=== PATIENT | female | born 1975 | race Caucasian/White ===

== ENCOUNTER 2017-11-04 06:45 | Day surgery (SDC) | payer OTHER ==
[~2017-11-04 06:45] MED LIST: Buffered Lidocaine 0.9% SYRIN* 5 ML/SYR SYRINGE INTRADERM ONE; Dexamethasone IV* 4 MG/ML 1 ML (4 MG) IV SLOW PU ONE; Famotidine IV* 10 MG/ML 2 ML (20 mg) IV ONE
[2017-11-04] MEDS ORDERED: ceFAZolin 2 GM PREMIX (*) 2 GM/50 ML BAG IVPB ONE (06:54)
[2017-11-04] MEDS ORDERED: Famotidine IV* 10 MG/ML 2 ML (20 mg) ONE (06:54)
[2017-11-04] MEDS ORDERED: Dexamethasone IV* 4 MG/ML 1 ML (4 MG) ONE (06:54)
[2017-11-04] MEDS ORDERED: Buffered Lidocaine 0.9% SYRIN* 5 ML/SYR SYRINGE ONE (06:54)
[2017-11-04] MEDS ORDERED: Bupivacaine 0.25% SDV* 30 ML ONE (07:15)
[2017-11-04] MEDS ORDERED: Lidocaine 1% MPF wEPI 200,000* 30 ML SDV ONE (07:15)
[2017-11-04] MEDS ORDERED: KETAMINE HCL* 50 MG/ML 10 ML VIAL ONE (07:31)
[2017-11-04] MEDS ORDERED: Midazolam* 1 MG/ML 2 ML VIAL (2 MG) ONE (07:31)
[2017-11-04] MEDS ORDERED: Rocuronium* 10 MG/ML VIAL ONE ×2 (07:32→07:36)
[2017-11-04] MEDS ORDERED: Lidocaine 1% INJ* 10 MG/ML 30 ML SDV ONE (07:35)
[2017-11-04] MEDS ORDERED: fentaNYL* 50 MCG/ML 2 ML VIAL (100 MCG VIAL) ONE ×2 (09:42→10:47)
[2017-11-04] MEDS ORDERED: Glycopyrrolate IV* 0.2 MG/ML 1 ML VIAL ONE (09:46)
[2017-11-04] MEDS ORDERED: Neostigmine Methylsulfate* 2 MG/2 ML SYRINGE ONE (09:46)
[2017-11-04] MEDS ORDERED: DiMENhydriNATE IV* 50 MG/ML VIAL IV PUSH PRN (10:18)
[2017-11-04] MEDS ORDERED: HYDROmorphone INJ* 1 MG/ML CARPUJECT SYRINGE IV PRN (10:18)
[2017-11-04] MEDS ORDERED: oxyCODONE/Acetamin 5/325 MG* TAB PO PRN (10:20)
[2017-11-04] MEDS: fentaNYL* 50 MCG/ML 2 ML VIAL (100 MCG VIAL) IV PRN ×2 (10:23→10:49)
[2017-11-04] MEDS ORDERED: Ketorolac INJ* 30 MG/ML 1 ML VIAL IV PUSH ONE (10:30)
[2017-11-04] MEDS ORDERED: HYDROmorphone INJ* 1 MG/ML CARPUJECT SYRINGE ONE (10:47)
[2017-11-04] MEDS ORDERED: Ibuprofen TAB* 600 MG ONE (15:55)
[2017-11-04 16:04] VITALS: BP 116/62
--- NOTE | 2017-11-05 02:06 | OP ---
DATE OF PROCEDURE: 11/04/17 - MERGED WITH [facility] DATE OF : 73 SURGEON: Jacquie Hahn MD DEAF INTERPRETER: Dr. Garcia. ANESTHESIA: General endotracheal. PRE-OP DIAGNOSES: 1. Abnormal uterine bleeding. 2. Subserosal and submucosal leiomyoma. 3. Failed conservative management. POST-OP DIAGNOSES: 1. Abnormal uterine bleeding. 2. Subserosal and submucosal leiomyoma. 3. Failed conservative management. OPERATIVE PROCEDURE: Laparoscopic supracervical hysterectomy, bilateral salpingectomy. ESTIMATED BLOOD LOSS: Less than 200 mL. FLUIDS: Crystalloid. DRAINS: Torres catheter 600 mL clear urine during procedure. FINDINGS: Normal ovaries and tubes. Uterus with a medium-sized left posterior fundal subserosal fibroid, otherwise appeared normal, normal-appearing appendix. COMPLICATIONS: None. COUNTS: All correct. DESCRIPTION OF PROCEDURE: After informed consent was signed, the patient was taken to the operating room where she was given general anesthesia that was found to be adequate. She was prepped and draped in the dorsal lithotomy position in the [facility]. Torres catheter was introduced into her bladder. A speculum was then placed into the vagina to expose the cervix and the anterior lip of the cervix was grasped with a single-tooth tenaculum. The uterine manipulator was inserted and the balloon inflated. The tenaculum and speculums were then removed from the vagina. Gloves were changed and attention was turned to the abdomen. The infraumbilical fold was grasped with Allis clamps and injected with 1% lidocaine with epinephrine. A 2 to 3 cm incision was then made vertically extending into the umbilicus. Incision was extended down to the layer of fascia with blunt dissection. The fascia was grasped with a Nava clamp and tented up and incised. The fascial incision was extended laterally with sharp dissection with the Núñez scissors. The peritoneum was entered bluntly. The single site port was then assembled and inserted through the incision. The camera was inserted into the abdominal cavity and it was insufflated. Inspection of the abdomen revealed previously noted findings. Attention was turned to the patient's left hand side where the tube was grasped and the mesosalpinx was clamped, cauterized, and cut along the length of the tube. The round ligament was then clamped, cauterized, and cut. The utero- ovarian ligament was clamped, cauterized, and cut with good hemostasis noted. Dissection was continued along the body of the uterus. The anterior flap of the broad ligament was dissected and clamped, cauterized, and cut to create a bladder flap. The uterine vessels were clamped and cauterized. Attention was then turned to the right side with the same steps were taken. Further dissection with cautery was continued along the length of the cervix until the uterine vessels were clamped and the uterus began to elaina. The electric loop was then inserted and placed around the uterus and brought taut against the base of the uterus and the cervix. It was inspected and no other organs were noted to be touching. Electrocautery was then used to cut as the loop was pulled through the cervix until the uterus was detached. The bag was then inserted. The uterus was placed into the bag and the bag was brought up to the umbilical incision. A guard was placed around the opening and the scalpel was then used to morcellate the uterus out of the incision. The bag was removed. The camera and ports were reassembled. The endocervix was cauterized with electrocautery. Several small vessels were cauterized around the posterior peritoneum and the edge of the cervix with excellent hemostasis noted. The abdomen was then irrigated. Once again, good hemostasis was noted along the cervix and both pedicles. The instruments were removed. The abdomen was desufflated. The port was then removed. The fascia was closed with 0 Vicryl in a running unlocked fashion. The skin was closed with 4-0 Monocryl in a running subcuticular fashion. Steri-Strip was placed. The patient was cleaned. The manipulator was removed from the cervix and vagina. She was placed back in the supine position, awakened from anesthesia, and brought to the recovery room in stable condition. [id number]/[facility] #: [id number] [facility]ITALSh[facility]
== END 2017-11-04 16:05 | disposition home or self-care (01) ==
LOC: OR 06:45
PROVIDERS: ATTEND Obstetrics & Gynecology
DX: D25.2 Subserosal leiomyoma of uterus (principal); D25.0 Submucous leiomyoma of uterus; Z85.828 Personal history of other malignant neoplasm of skin; N92.0 Excessive and frequent menstruation with regular cycle
CPT/HCPCS: 81025; 88307; A9270-GY; J0690; J1100; J1170; J2001; J2250; J3010

== ENCOUNTER 2018-02-27 08:44 | Emergency (ER) | payer OTHER ==
[2018-02-27 09:03] VITALS: BP 117/82
--- NOTE | 2018-02-27 09:36 | UC ---
Ear Complaint HPI - HPI Summary HPI Summary: c/o right ear pain that started several days ago with radiation to right jaw. She put some drops to remove wax but that gave her itching. Denies fever, cough , sore throat or nasal d/c - History of Current Complaint Chief Complaint: UCEar Stated Complaint: EAR PAIN Time Seen by Provider: 02/27/18 09:07 Hx Obtained From: Patient Hx Last Menstrual Period: s/p partial hysterectomy ?: No Onset/Duration: Sudden Onset, Lasting Days Severity Initially: Mild Severity Currently: Moderate Pain Intensity: 5 Alleviating Factors: Nothing - Allergies/Home Medications Allergies/Adverse Reactions: Allergies Allergy/AdvReac Type Severity Reaction Status Date / Time No Known Allergies Allergy Verified 02/27/18 08:54 PMH/Surg Hx/FS Hx/Imm Hx Previously Healthy: Yes - Surgical History Surgical History: Yes Surgery Procedure, Year, and Place: LAPAROSCOPIC CHOLECYSTECTOMY. WISDOM TEETH. OCT 2017 PARTIAL HYSTERECTOMY - Social History Alcohol Use: Weekly Alcohol Amount: 1-2 PER WEEK Substance Use Type: None Smoking Status (MU): Never Smoked Tobacco Review of Systems Constitutional: Negative ENT: Ear Ache All Other Systems Reviewed And Are Negative: Yes Physical Exam Triage Information Reviewed: Yes Appearance: Well-Appearing, No Pain Distress, Well-Nourished Vital Signs: Initial Vital Signs Temp 97.6 F 02/27/18 08:55 Pulse 63 02/27/18 08:55 Resp 16 02/27/18 08:55 BP 117/82 02/27/18 08:55 Pulse Ox 96 02/27/18 08:55 Vital Signs Reviewed: Yes Eyes: Positive: Conjunctiva Clear ENT: Positive: Hearing grossly normal, Pharynx normal, TM red - right TM erythema and bulging with edema of ear canal Dental Exam: Normal Respiratory: Positive: Chest non-tender, Lungs clear, Normal breath sounds, No respiratory distress Cardiovascular: Positive: RRR, No Murmur, Pulses Normal Ear Complaint Course/Dx - Course Course Of Treatment: AOM with Otitis externa, start antibiotics as prescribed, probiotics and oral hydration, f/u with PCP - Differential Dx/Diagnosis Provider Diagnoses: Acute Otitis Media. Otitis externa Discharge - Sign-Out/Discharge Documenting (check all that apply): Discharge - Discharge Plan Condition: Stable Disposition: HOME Prescriptions: Amoxicillin PO (*) [Amoxicillin 875 MG (*)] 875 mg PO BID 10 Days #20 tab Ciproflox/Dexameth OTIC.SUSP* [Ciprodex OTIC.SUSP*] 1 drop .SEE ORDER TID 5 Days #1 btl Patient Education Materials: Ear Infection (ED), Amoxicillin (By mouth), Ciprofloxacin/Dexamethasone (Into the ear) Referrals: Luis A Castelan MD [Primary Care Provider] - - Billing Disposition and Condition Condition: STABLE Disposition: HOME
== END 2018-02-27 09:35 | disposition home or self-care (01) ==
LOC: UCEAST 08:44
DX: H66.91 Otitis media, unspecified, right ear (principal); H60.91 Unspecified otitis externa, right ear
CPT/HCPCS: 99212; G0463

== ENCOUNTER 2020-02-09 04:22 | Emergency (ER) | payer OTHER ==
--- NOTE | 2020-02-09 04:42 | ED ---
Throat Pain/Nasal Congestion - HPI Summary HPI Summary: 45 year old female presents to the ED with a chief complaint of right ear pain starting 4 days ago. Pain is constant and feels like it is located deep in her ear, severity 9/10. Patient is unable to hear from the affected ear. Patient had a tele-appointment with an HENT specialist 2 days ago and was prescribed amoxicillin. Pain has only gotten worse since then, and acetaminophen does not alleviate the pain. Patient also reports back pain of 4/10 severity. Patient has a history of frequent ear aches. No past medical history apart from allergies and ear infections. - History of Current Complaint Chief Complaint: EDEarPain Time Seen by Provider: 02/09/20 04:33 Hx Obtained From: Patient Onset/Duration: Gradual Onset, Lasting Days Severity: Severe Associated Signs And Symptoms: Negative: Negative - Pos - right ear pain Cough: None Related History: Seasonal Allergies - Allergies/Home Medications Allergies/Adverse Reactions: Allergies Allergy/AdvReac Type Severity Reaction Status Date / Time No Known Allergies Allergy Verified 02/09/20 04:24 Home Medications: Home Medications oxyCODONE/Acetamin 5/325 MG* [Percocet 5/325 TAB*] 1 tab PO Q4H PRN #8 tab MDD 4 02/09/20 [Rx] PMH/Surg Hx/FS Hx/Imm Hx Endocrine/Hematology History: Denies: Hx Diabetes, Hx Thyroid Disease Cardiovascular History: Denies: Hx Hypertension Respiratory History: Denies: Hx Asthma, Hx Chronic Obstructive Pulmonary Disease (COPD) GI History: Denies: Hx Ulcer Sensory History: Reports: Hx Contacts or Glasses - WILL WEAR GLASSES DAY OF SURGERY Denies: Hx Hearing Aid Opthamlomology History: Reports: Hx Contacts or Glasses - WILL WEAR GLASSES DAY OF SURGERY EENT History: Reports: Hx Seasonal Allergies, Other - frequent ear pain Neurological History: Reports: Hx Migraine - HX OF - Cancer History Hx Chemotherapy: No Hx Radiation Therapy: No - Surgical History Surgery Procedure, Year, and Place: LAPAROSCOPIC CHOLECYSTECTOMY. WISDOM TEETH. OCT 2017 PARTIAL HYSTERECTOMY Hx Anesthesia Reactions: Yes - CRIES WHEN WAKES UP Infectious Disease History: No Infectious Disease History: Denies: Hx Hepatitis, Hx Human Immunodeficiency Virus (HIV), Traveled Outside the [place] in Last 30 Days - Social History Alcohol Use: Weekly Alcohol Amount: 1-2 PER WEEK Substance Use Type: Reports: None Smoking Status (MU): Never Smoked Tobacco Review of Systems Negative: Fever Positive: Ear Ache Positive: Myalgia - back pain All Other Systems Reviewed And Are Negative: Yes Physical Exam - Summary Physical Exam Summary: Appearance: Well-appearing, Well-nourished, lying in bed comfortably Skin: Warm, dry, no obvious rash Eyes: sclera anicteric, no conjunctival pallor HENT: mucous membranes moist, pharynx appears normal. Right ear canal swollen and tender. No discharge seen. Limited TM appears normal. Neck: Supple, nontender Respiratory: Clear to auscultation, no signs of respiratory distress Cardiovascular: Normal S1, S2. No murmurs. Normal distal pulses in tibial and radial bilaterally. Abdomen: Soft, nontender, normal active bowel sounds present Musculoskeletal: Normal, Strength/ROM Intact Neurological: A&Ox3, awake and alert, mentation is normal, speech is fluent and appropriate Psychiatric: affect is normal, does not appear anxious or depressed Triage Information Reviewed: Yes Vital Signs On Initial Exam: Initial Vitals Temp Pulse Resp BP Pulse Ox 98.0 F 78 18 132/99 98 02/09/20 04:24 02/09/20 04:24 02/09/20 04:24 02/09/20 04:24 02/09/20 04:24 Vital Signs Reviewed: Yes Procedures - Sedation Patient Received Moderate/Deep Sedation with Procedure: No Diagnostics - Vital Signs Vital Signs Temp Pulse Resp BP Pulse Ox 02/09/20 04:24 98.0 F 78 18 132/99 98 - Laboratory Lab Statement: Any lab studies that have been ordered have been reviewed, and results considered in the medical decision making process. EENT Course/Dx - Course Course Of Treatment: 45 year old female presents to the ED with a chief complaint of right ear pain starting 4 days ago. Pain is constant and feels like it is located deep in her ear, severity 9/10. Patient is unable to hear from the affected ear. Patient had a tele-appointment with an HENT specialist 2 days ago and was prescribed amoxicillin. Pain has only gotten worse since then, and acetaminophen does not alleviate the pain. Patient also reports back pain of 4/10 severity. Patient has a history of frequent ear aches. No past medical history apart from allergies and ear infections. Upon exam, right ear canal swollen and tender. No discharge seen. Limited TM appears normal. Diagnosis is otitis externa for which I prescribed Percocet for the severe pain. Patient will be discharged home. Patient understands and agrees with this plan. - Diagnoses Provider Diagnoses: Otitis externa Discharge ED - Sign-Out/Discharge Documenting (check all that apply): Patient Departure - discharge home - Discharge Plan Condition: Stable Disposition: HOME Prescriptions: oxyCODONE/Acetamin 5/325 MG* [Percocet 5/325 TAB*] 1 tab PO Q4H PRN #8 tab MDD 4 PRN Reason: Pain - Severe Patient Education Materials: Otitis Externa (ED) Referrals: Bandar Freedman MD [Medical Doctor] - Additional Instructions: Please contact your ENT later today and see about getting in to be seen on Wednesday. The ear canal on the right looks quite swollen and is tender, so I think the problem is coming from infection and inflammation in the canal itself , which is usually amenable to topical therapy. I have sent in a prescription for a stronger pain killer if you need it over the weekend. - Billing Disposition and Condition Condition: STABLE Disposition: Home - Attestation Statements Document Initiated by Norman: Yes Documenting Scribe: Bobby Paniagua Provider For Whom Norman is Documenting (Include Credential): Dr. Rambo Horton Scribe Attestation: I, Bobby Paniagua, scribed for Dr. Rambo Horton on 02/12/20 at 2321. Scribe Documentation Reviewed: Yes Provider Attestation: The documentation as recorded by the Bobby lynn accurately reflects the service I personally performed and the decisions made by me, Dr. Rambo Horton Status of Scribe Document: Viewed
[2020-02-09] MEDS ORDERED: oxyCODONE/Acetamin 5/325 MG* TAB PO ONE (04:43)
[2020-02-09] MEDS ORDERED: Neomyc/Polym/HC 1% OTIC SUSP* **OTIC RIGHT EAR ONE (05:00)
[2020-02-09 05:20] VITALS: BP 136/83
== END 2020-02-09 05:19 | disposition home or self-care (01) ==
LOC: ED 04:22
DX: H60.91 Unspecified otitis externa, right ear (principal); H92.01 Otalgia, right ear; M54.9 Dorsalgia, unspecified
CPT/HCPCS: 99282; A9270-GY